=== PATIENT | female | born 1985 | race American Indian/Alaskan Native ===

== ENCOUNTER 2021-01-13 23:17 | Emergency (ER) | payer SELFPAY ==
[2021-01-14] MEDS ORDERED: AMOXICILLIN/K CLAV 875/125MG TAB PO ONE (00:57)
[2021-01-14] MEDS ORDERED: traMADol 50 MG TAB PO ONE (00:57)
--- NOTE | 2021-01-14 02:24 | Emergency Department Report ---
ED General Adult HPI - General Chief complaint: Dental/Oral Stated complaint: DENTAL Time Seen by Provider: 01/14/21 00:55 Source: patient Mode of arrival: Ambulatory Limitations: No Limitations - History of Present Illness Initial comments: Patient 35-year-old female who presents for dental pain. Right lower x3 days. This is a chronic recurrent problem for this patient. Patient advises she has been unable to see the dentist. States she had pain and swelling 2 days ago and abscess ruptured today causing some bleeding and drainage. Is been no fevers no chills no nausea vomiting there is no throat or ear pain. Patient is tolerating p.o. intake at this time. Symptoms are exacerbated by hot and cold stimuli. Symptoms are relieved by nothing tried. Severity scale (0 -10): 4 - Related Data Previous Rx's Medication Instructions Recorded Last Taken Type Amoxicillin/Potassium Clav 1 each PO BID #14 tablet 01/14/21 Unknown Rx [Augmentin 875-125 Tablet] Chlorhexidine Mouthwash [Peridex] 15 ml MM BID #1 bottle 01/14/21 Unknown Rx traMADoL [Ultram] 50 mg PO Q6HR PRN #12 tablet 01/14/21 Unknown Rx Allergies Allergy/AdvReac Type Severity Reaction Status Date / Time No Known Allergies Allergy Unverified 01/13/21 23:22 ED Review of Systems ROS: Stated complaint: DENTAL Other details as noted in HPI Constitutional: denies: chills, fever Eyes: denies: eye pain, eye discharge, vision change ENT: dental pain. denies: throat pain, epistaxis, congestion Respiratory: denies: cough, shortness of breath, wheezing Cardiovascular: denies: chest pain, palpitations Endocrine: no symptoms reported Gastrointestinal: denies: abdominal pain, nausea, vomiting, diarrhea Genitourinary: denies: urgency, dysuria, discharge Musculoskeletal: denies: back pain, joint swelling, arthralgia Skin: denies: rash, lesions Neurological: denies: headache, weakness, paresthesias, vertigo Psychiatric: denies: anxiety, depression Hematological/Lymphatic: denies: easy bleeding, easy bruising ED Past Medical Hx - Past Medical History Previous Medical History?: Yes Hx Psychiatric Treatment: Yes (BIPOLAR) - Surgical History Past Surgical History?: No - Medications Home Medications: Home Medications Medication Instructions Recorded Confirmed Last Taken Type Amoxicillin/Potassium Clav 1 each PO BID #14 tablet 01/14/21 Unknown Rx [Augmentin 875-125 Tablet] Chlorhexidine Mouthwash [Peridex] 15 ml MM BID #1 bottle 01/14/21 Unknown Rx traMADoL [Ultram] 50 mg PO Q6HR PRN #12 tablet 01/14/21 Unknown Rx ED Physical Exam - General Limitations: No Limitations General appearance: alert, in no apparent distress - Head Head exam: Present: atraumatic, normocephalic - Eye Eye exam: Present: normal appearance, PERRL, EOMI. Absent: conjunctival injection, nystagmus Pupils: Present: normal accommodation - ENT ENT exam: Present: mucous membranes moist, TM's normal bilaterally, normal external ear exam - Expanded ENT Exam Expanded Ear exam: Present: normal external inspection Teeth exam: Present: dental caries, fractured tooth # (32 mild erythema no swelling no facial swelling) Throat exam: Positive: normal inspection, other (Airways patent pharynx no lesions no abscess no stridor no wheezing). Negative: tonsillar erythema, tonsillomegaly, tonsillar exudate, R peritonsillar mass, L peritonsillar mass - Neck Neck exam: Present: normal inspection, tenderness, full ROM, lymphadenopathy. Absent: meningismus, thyromegaly - Respiratory Respiratory exam: Present: normal lung sounds bilaterally. Absent: respiratory distress, wheezes, stridor, chest wall tenderness - Cardiovascular Cardiovascular Exam: Present: regular rate, normal rhythm, normal heart sounds. Absent: systolic murmur, diastolic murmur, rubs, gallop - GI/Abdominal GI/Abdominal exam: Present: soft, normal bowel sounds. Absent: distended, tenderness, guarding, rebound, rigid, bruit, hernia - Rectal Rectal exam: Present: deferred - Extremities Exam Extremities exam: Present: normal inspection, full ROM. Absent: tenderness - Back Exam Back exam: Present: normal inspection, full ROM. Absent: CVA tenderness (R), CVA tenderness (L) - Neurological Exam Neurological exam: Present: alert, oriented X3, CN II-XII intact, normal gait - Psychiatric Psychiatric exam: Present: normal affect, normal mood - Skin Skin exam: Present: warm, dry, intact, normal color. Absent: rash ED Course Vital Signs 01/13/21 23:19 Temperature 98.5 F Pulse Rate 109 H Respiratory 18 Rate Blood Pressure 135/86 O2 Sat by Pulse 97 Oximetry ED Medical Decision Making - Lab Data This is infected dental caries plan DC to home with prescriptions. Follow-up with dentist today. Return to emergency department should symptoms worsen. Patient verbalized agreement and understanding of discharge plan DC'd home in stable condition at this time. - Medical Decision Making There is infected dental caries. Take all medications as prescribed. Return to emergency if symptoms worsen. Critical care attestation.: If time is entered above; I have spent that time in minutes in the direct care of this critically ill patient, excluding procedure time. ED Disposition Clinical Impression: Infected dental caries Disposition: HOME / SELF CARE / HOMELESS Is pt being admited?: No Does the pt Need Aspirin: No Condition: Stable Instructions: Dental Abscess, [id number], Preventive Dental Care, Adult Additional Instructions: Follow-up with dentist in 2 to 3 days. Return to emergency department if symptoms worsen. Prescriptions: Amoxicillin/Potassium Clav [Augmentin 875-125 Tablet] 1 each PO BID #14 tablet Chlorhexidine Mouthwash [Peridex] 15 ml MM BID #1 bottle traMADoL [Ultram] 50 mg PO Q6HR PRN #12 tablet PRN Reason: Pain Referrals: PRIMARY CARE, [Primary Care Provider] - 3-5 Days Forms: Work/School Release Form(ED) Time of Disposition: 02:30
[2021-01-14 03:32] VITALS: BP 104/86
== END 2021-01-14 03:31 | disposition home or self-care (01) ==
LOC: ED 23:17
DX: K02.9 Dental caries, unspecified (principal); F31.9 Bipolar disorder, unspecified
CPT/HCPCS: 99281; 99282

== ENCOUNTER 2021-03-02 16:39 | Emergency (ER) | payer MEDICAID | END 2021-03-03 04:30 | disposition left against medical advice (07) | LOC: ED 16:39 | DX: F41.9 Anxiety disorder, unspecified (principal); Z53.21 Procedure and treatment not carried out due to patient leaving prior to being seen by health care provider ==

== ENCOUNTER 2021-03-06 18:32 | Emergency (ER) | payer MEDICAID ==
[2021-03-07] MEDS ORDERED: DIVALPROEX DR 500 MG TAB PO ONE (01:09)
[2021-03-07] MEDS ORDERED: clonazePAM 0.5 MG TAB PO ONE (01:09)
--- NOTE | 2021-03-07 01:13 | Emergency Department Report ---
ED General Adult HPI - General Chief complaint: Medical Clearance Stated complaint: MEDICATION WITHDRAWAL Source: patient Mode of arrival: Ambulatory Limitations: No Limitations - History of Present Illness Initial comments: Patient is a 35-year-old -Maltese female with a history of anxiety, depression and bipolar disorder and who takes Klonopin 1 mg twice daily and Dep akote 500 mg twice a day presents to the ED requesting for medication refill after she ran out of her medications 2 months ago. Patient states that she just relocated into the state [facility] from [place] where she has been seeing a psychiatrist and who has been prescribing these medications. Patient states that she has not been able to be evaluated or follow-up with a psychiatrist in [place] because she finds it hard to get 1. The patient states that the only psychiatrist that she has been in contact with told her that she may not be able to be seen until August 2021. Patient states that she ran out of her medication and she is unable to function without them. Patient denies suicidal or homicidal ideation, chest pain or shortness of breath, nausea and vomiting, dizziness, syncope, fever and chills or cough, abdominal pain or change in vision. MD Complaint: medication refil, chronic baseline anxiety, depression and Bipolar d/o -: Gradual, month(s) (3) Location: head Radiation: non-radiation Severity scale (0 -10): 7 Quality: dull Consistency: constant Improves with: none Worsens with: none Associated Symptoms: denies other symptoms. denies: confusion, chest pain, cough, diaphoresis, fever/chills, headaches, loss of appetite, malaise, nausea/vomiting, rash, shortness of breath Treatments Prior to Arrival: none - Related Data Previous Rx's Medication Instructions Recorded Last Taken Type Amoxicillin/Potassium Clav 1 each PO BID #14 tablet 01/14/21 Unknown Rx [Augmentin 875-125 Tablet] Chlorhexidine Mouthwash [Peridex] 15 ml MM BID #1 bottle 01/14/21 Unknown Rx traMADoL [Ultram] 50 mg PO Q6HR PRN #12 tablet 01/14/[address] [DepaKOTE DR] 500 mg PO BID #60 tablet 03/07/21 Unknown Rx clonazePAM [Klonopin] 1 mg PO Q12H PRN #12 tab 03/07/21 Unknown Rx Allergies Allergy/AdvReac Type Severity Reaction Status Date / Time No Known Allergies Allergy Unverified 01/13/21 23:22 ED Review of Systems ROS: Stated complaint: MEDICATION WITHDRAWAL Other details as noted in HPI Constitutional: denies: chills, fever Eyes: denies: eye pain, eye discharge, vision change ENT: denies: ear pain, throat pain Respiratory: denies: cough, shortness of breath, wheezing Cardiovascular: denies: chest pain, palpitations Endocrine: no symptoms reported Gastrointestinal: denies: abdominal pain, nausea, diarrhea Genitourinary: denies: urgency, dysuria, discharge Musculoskeletal: denies: back pain, joint swelling, arthralgia Skin: denies: rash, lesions Neurological: denies: headache, weakness, paresthesias Psychiatric: anxiety. denies: depression, auditory hallucinations, visual hallucinations, homicidal thoughts, suicidal thoughts Hematological/Lymphatic: denies: easy bleeding, easy bruising ED Past Medical Hx - Past Medical History Previous Medical History?: Yes Hx Psychiatric Treatment: Yes (BIPOLAR, anxiety and depression) - Surgical History Past Surgical History?: No - Medications Home Medications: Home Medications Medication Instructions Recorded Confirmed Last Taken Type Amoxicillin/Potassium Clav 1 each PO BID #14 tablet 01/14/21 Unknown Rx [Augmentin 875-125 Tablet] Chlorhexidine Mouthwash [Peridex] 15 ml MM BID #1 bottle 01/14/21 Unknown Rx traMADoL [Ultram] 50 mg PO Q6HR PRN #12 tablet 01/14/[address] [DepaKOTE DR] 500 mg PO BID #60 tablet 03/07/21 Unknown Rx clonazePAM [Klonopin] 1 mg PO Q12H PRN #12 tab 03/07/21 Unknown Rx ED Physical Exam - General Limitations: No Limitations General appearance: alert, in no apparent distress - Head Head exam: Present: atraumatic, normocephalic, normal inspection - Eye Eye exam: Present: normal appearance, PERRL, EOMI Pupils: Present: normal accommodation - ENT ENT exam: Present: normal exam, normal orophraynx, mucous membranes moist, TM's normal bilaterally, normal external ear exam - Neck Neck exam: Present: normal inspection, full ROM - Respiratory Respiratory exam: Present: normal lung sounds bilaterally. Absent: respiratory distress, wheezes, rales, rhonchi, chest wall tenderness, accessory muscle use, decreased breath sounds - Cardiovascular Cardiovascular Exam: Present: regular rate, normal rhythm, normal heart sounds. Absent: systolic murmur, diastolic murmur, rubs, gallop - GI/Abdominal GI/Abdominal exam: Present: soft, normal bowel sounds. Absent: tenderness, guarding, hyperactive bowel sounds, hypoactive bowel sounds - Extremities Exam Extremities exam: Present: normal inspection, full ROM, normal capillary refill - Back Exam Back exam: Present: normal inspection, full ROM. Absent: CVA tenderness (L), muscle spasm, paraspinal tenderness, vertebral tenderness - Neurological Exam Neurological exam: Present: alert, oriented X3, CN II-XII intact, normal gait, reflexes normal. Absent: abnormal gait - Psychiatric Psychiatric exam: Present: depressed, anxious, flat affect. Absent: agitated, homicidal ideation, suicidal ideation - Skin Skin exam: Present: warm, dry, intact, normal color. Absent: rash ED Course Vital Signs 03/06/21 03/06/21 19:20 19:24 Temperature 98.2 F Pulse Rate 87 Respiratory 18 Rate Blood Pressure 88/64 Blood Pressure 128/83 [Left] O2 Sat by Pulse 100 Oximetry ED Medical Decision Making - Medical Decision Making This is a 35-year-old -Maltese female with a history of anxiety, depression and bipolar disorder and who takes Klonopin 1 mg twice daily and Depakote 500 mg twice a day presents to the ED requesting for medication refill after she ran out of her medications 2 months ago. Patient states that she just relocated into the state [facility] from [place] where she has been seeing a psychiatrist and who has been prescribing these medications. Patient states that she has not been able to be evaluated or follow-up with a psychiatrist in [place] because she finds it hard to get 1. The patient states that the only psychiatrist that she has been in contact with told her that she may not be able to be seen until August 2021. Patient states that she ran out of her medication and she is unable to function without them. In the ED, patient is alert and oriented x3 and is not in any distress. Patient was treated in the ED with m edications Depakote 500 mg p.o. x1 and Klonopin 1 mg p.o. x1. Patient discharged home on medications and given a referral to the psychiatrist and advised to follow-up with the psychiatrist in 5 to 7 days for reevaluation. Patient was advised to return to the ED immediately if symptoms get worse. - Differential Diagnosis Chronic anxiety; chronic depression; bipolar disorder; Critical care attestation.: If time is entered above; I have spent that time in minutes in the direct care of this critically ill patient, excluding procedure time. ED Disposition Clinical Impression: Chronic bipolar disorder, Anxiety with depression, Medication refill Disposition: 01 HOME / SELF CARE / HOMELESS Is pt being admited?: No Does the pt Need Aspirin: No Condition: Stable Instructions: Generalized Anxiety Disorder, Adult, Mixed Bipolar Disorder, Managing Bipolar Disorder Additional Instructions: Take medication with food, drink plenty of fluids and follow-up with your psychiatrist in 7 to 10 days for reevaluation. You can still follow-up with your home-based psychiatrist virtually as previously done. Return to the ED immediately if symptoms get worse. Prescriptions: Divalproex Dr [DepaKOTE DR] 500 mg PO BID #60 tablet clonazePAM [Klonopin] 1 mg PO Q12H PRN #12 tab PRN Reason: Anxiety Referrals: JENN CORCORAN MD [Referring] - 3-5 Days [facility] [Provider Group] - 3-5 Days Time of Disposition: 01:15 Print Language: HUNGARIAN
[2021-03-07 01:47] VITALS: BP 123/88
== END 2021-03-07 01:30 | disposition home or self-care (01) ==
LOC: ED 18:32
DX: F31.9 Bipolar disorder, unspecified (principal); F41.9 Anxiety disorder, unspecified; Z76.0 Encounter for issue of repeat prescription; G89.29 Other chronic pain
CPT/HCPCS: 99282

== ENCOUNTER 2021-06-08 07:44 | Emergency (ER) | payer MEDICAID ==
--- NOTE | 2021-06-08 12:41 | Emergency Department Report ---
ED Recheck HPI - General Chief Complaint: Medical Clearance Stated Complaint: PANIC ATTACK Time Seen by Provider: 06/08/21 12:27 Source: patient Mode of arrival: Ambulatory Limitations: No Limitations - History of Present Illness Initial Comments: 35-year-old black female with a past medical history of anxiety and seizures presents to the emergency department requesting medication refill. She states that she has been in [place] for the past 3 to 4 weeks secondary to in the family and since then has ran out of her Klonopin and Depakote. She denies any symptoms but states that she needs to restart her medication and has not been able to get an appointment with her primary care provider. Complaint: medication refill request Returns Today for: request for prescription Context: ran out of medication Associated Symptoms: none - Related Data Previous Rx's Medication Instructions Recorded Last Taken Type Amoxicillin/Potassium Clav 1 each PO BID #14 tablet 01/14/21 Unknown Rx [Augmentin 875-125 Tablet] Chlorhexidine Mouthwash [Peridex] 15 ml MM BID #1 bottle 01/14/21 Unknown Rx traMADoL [Ultram] 50 mg PO Q6HR PRN #12 tablet 01/14/[address] [DepaKOTE DR] 500 mg PO BID #60 tablet 03/07/21 Unknown Rx clonazePAM [Klonopin] 1 mg PO Q12H PRN #12 tab 03/07/[address] [DepaKOTE DR] 500 mg PO BID #30 tablet 06/08/21 Unknown Rx clonazePAM [Klonopin] 1 mg PO BID #30 tab 06/08/21 Unknown Rx Allergies Allergy/AdvReac Type Severity Reaction Status Date / Time No Known Allergies Allergy Unverified 01/13/21 23:22 ED Review of Systems ROS: Stated complaint: PANIC ATTACK Other details as noted in HPI Comment: All other systems reviewed and negative Constitutional: denies: chills, fever Eyes: denies: vision change ENT: denies: congestion Respiratory: denies: cough, shortness of breath, SOB with exertion, SOB at rest Cardiovascular: denies: chest pain, palpitations, dyspnea on exertion Gastrointestinal: denies: abdominal pain, nausea, vomiting Genitourinary: denies: dysuria Musculoskeletal: denies: back pain Skin: denies: rash, lesions Neurological: denies: headache, weakness, numbness, paresthesias, confusion, vertigo Psychiatric: denies: anxiety, depression, auditory hallucinations, visual hallucinations, homicidal thoughts, suicidal thoughts ED Past Medical Hx - Past Medical History Hx Psychiatric Treatment: Yes (BIPOLAR, anxiety and depression) - Medications Home Medications: Home Medications Medication Instructions Recorded Confirmed Last Taken Type Amoxicillin/Potassium Clav 1 each PO BID #14 tablet 01/14/21 Unknown Rx [Augmentin 875-125 Tablet] Chlorhexidine Mouthwash [Peridex] 15 ml MM BID #1 bottle 01/14/21 Unknown Rx traMADoL [Ultram] 50 mg PO Q6HR PRN #12 tablet 01/14/[address] [DepaKOTE DR] 500 mg PO BID #60 tablet 03/07/21 Unknown Rx clonazePAM [Klonopin] 1 mg PO Q12H PRN #12 tab 03/07/[address] [DepaKOTE DR] 500 mg PO BID #30 tablet 06/08/21 Unknown Rx clonazePAM [Klonopin] 1 mg PO BID #30 tab 06/08/21 Unknown Rx ED Physical Exam - General Limitations: No Limitations General appearance: alert, in no apparent distress - Head Head exam: Present: atraumatic, normocephalic - Eye Eye exam: Present: normal appearance. Absent: conjunctival injection - Neck Neck exam: Present: normal inspection, full ROM. Absent: lymphadenopathy - Respiratory Respiratory exam: Present: normal lung sounds bilaterally. Absent: respiratory distress, wheezes, rales, rhonchi, stridor, chest wall tenderness, accessory muscle use - Cardiovascular Cardiovascular Exam: Present: regular rate, normal heart sounds - GI/Abdominal GI/Abdominal exam: Present: soft, normal bowel sounds. Absent: distended, guarding, rebound, rigid - Extremities Exam Extremities exam: Present: normal inspection, normal capillary refill. Absent: pedal edema, joint swelling, calf tenderness - Back Exam Back exam: Present: normal inspection - Neurological Exam Neurological exam: Present: alert, oriented X3, normal gait - Psychiatric Psychiatric exam: Present: normal affect, normal mood - Skin Skin exam: Present: warm, dry, intact, normal color ED Course Vital Signs 06/08/21 06/08/21 08:24 12:59 Temperature 97.8 F Pulse Rate 65 67 Respiratory 18 18 Rate Blood Pressure 105/67 97/70 [Right] O2 Sat by Pulse 100 98 Oximetry ED Recheck MDM - Differential Diagnosis Prescription Refill(s) - Medical Decision Making 35-year-old black female with a past medical history of anxiety and seizures presents to the emergency department requesting medication refill. She states that she has been in [place] for the past 3 to 4 weeks secondary to in the family and since then has ran out of her Klonopin and Depakote. She denies any symptoms but states that she needs to restart her medication and has not been able to get an appointment with her primary care provider. Patient without complaints of at this time. She denies SI and HI. Patient given refill of Klonopin and Depakote and advised to follow-up with her primary care provider for further evaluation and management. She verbalized understanding of and agreement with plan of care. Critical care attestation.: If time is entered above; I have spent that time in minutes in the direct care of this critically ill patient, excluding procedure time. ED Disposition Clinical Impression: Medication refill Disposition: 01 HOME / SELF CARE / HOMELESS Is pt being admited?: No Does the pt Need Aspirin: No Condition: Stable Instructions: Valproic Acid, Divalproex Sodium capsules, Clonazepam tablets Additional Instructions: Take medications as prescribed. Follow-up with primary care provider for further evaluation and management. Prescriptions: Divalproex Dr [DepaKOTE DR] 500 mg PO BID #30 tablet clonazePAM [Klonopin] 1 mg PO BID #30 tab Referrals: BRYCE KASPER MD [Primary Care Provider] - 3-5 Days LILLIAN GUTIERREZ MD [Referring] - 3-5 Days Time of Disposition: 12:42
[2021-06-08 13:02] VITALS: BP 97/70
== END 2021-06-08 13:02 | disposition home or self-care (01) ==
LOC: ED 07:44
DX: F41.9 Anxiety disorder, unspecified (principal); Z76.0 Encounter for issue of repeat prescription
CPT/HCPCS: 99282

== ENCOUNTER 2021-06-30 22:09 | Emergency (ER) | payer MEDICAID ==
[2021-07-01 00:16] VITALS: BP 101/76
[2021-07-01 00:32] LABS: Bilirubin,Urine NEG (Negative); Blood,Urine LG (Negative); Color,Urine Yellow (Yellow); Mucus,Urine 3+ /HPF; Protein,Urine <15 mg/dL mg/dL (Negative)
[2021-07-01 00:33] LABS: Amphetamine Screen,Urine PRESUMPTIVE NEGATIVE; Benzodiazepines Screen,Urine PRESUMPTIVE NEGATIVE; Cannabinoid Screen,Urine PRESUMPTIVE NEGATIVE; Cocaine Screen,Urine PRESUMPTIVE NEGATIVE; HCG Qualitative,Urine Negative (Negative); Methadone Screen,Urine PRESUMPTIVE NEGATIVE; Opiate Screen,Urine PRESUMPTIVE NEGATIVE
[2021-07-01 00:58] LABS: Basophils % (Auto) 0.4 % (0.0-1.8); Eosinophils # (Auto) 0.1 K/mm3 (0.0-0.4); Eosinophils % (Auto) 1.3 % (0.0-4.3); Hematocrit 36.8 % (30.3-42.9); Hemoglobin 11.9 gm/dl (10.1-14.3); Lymphocytes # (Auto) 2.9 K/mm3 (1.2-5.4); Lymphocytes % (Auto) 42.2 % (13.4-35.0); Mean Corpuscular HGB Conc 32 % (30-34); Mean Corpuscular Volume 84 fl (79-97); Monocytes # (Auto) 0.5 K/mm3 (0.0-0.8); Monocytes % (Auto) 7.6 % (0.0-7.3); Platelet Count 229 K/mm3 (140-440); Red Blood Count 4.36 M/mm3 (3.65-5.03); Red Cell Distribution Width 14.8 % (13.2-15.2)
[2021-07-01 00:59] LABS: Alanine Aminotransferase 11 units/L (7-56); Albumin 4.1 g/dL (3.9-5); Blood Urea Nitrogen 9 mg/dL (7-17); Calcium 8.9 mg/dL (8.4-10.2); Hemolysis Index 1
[2021-07-01 01:24] LABS: BUN/Creatinine Ratio 13
== END 2021-07-01 11:59 ==
LOC: ED 22:09
DX: F41.9 Anxiety disorder, unspecified (principal); Z53.21 Procedure and treatment not carried out due to patient leaving prior to being seen by health care provider; Z79.899 Other long term (current) drug therapy
CPT/HCPCS: 36415; 80053; 80307; 80320; 81001; 81025; 85025; G0480

== ENCOUNTER 2021-07-05 02:39 | Emergency (ER) | payer MEDICAID ==
[2021-07-05 02:49] VITALS: BP 107/76
[2021-07-05] MEDS ORDERED: clonazePAM 0.5 MG TAB PO ONE (03:33)
--- NOTE | 2021-07-05 03:38 | Emergency Department Report ---
ED Psych HPI - General Chief Complaint: Psych Stated Complaint: PANIC ATTACK Time Seen by Provider: 07/05/21 03:03 Source: patient Mode of arrival: Ambulatory Limitations: No Limitations - History of Present Illness Initial Comments: Patient is a 36-year-old female presenting the ED with complaint of panic attack for the past 2 hours. States she is out of her Klonopin. - Related Data Previous Rx's Medication Instructions Recorded Last Taken Type Amoxicillin/Potassium Clav 1 each PO BID #14 tablet 01/14/21 Unknown Rx [Augmentin 875-125 Tablet] Chlorhexidine Mouthwash [Peridex] 15 ml MM BID #1 bottle 01/14/21 Unknown Rx traMADoL [Ultram] 50 mg PO Q6HR PRN #12 tablet 01/14/[address] [Roberto VAZQUEZ] 500 mg PO BID #60 tablet 03/07/21 Unknown Rx clonazePAM [Klonopin] 1 mg PO Q12H PRN #12 tab 03/07/[address] [Roberto VAZQUEZ] 500 mg PO BID #30 tablet 06/08/21 Unknown Rx clonazePAM [Klonopin] 1 mg PO BID #30 tab 06/08/21 Unknown Rx clonazePAM [Klonopin] 1 mg PO BID PRN #10 07/05/21 Unknown Rx Allergies Allergy/AdvReac Type Severity Reaction Status Date / Time No Known Allergies Allergy Unverified 01/13/21 23:22 ED Review of Systems ROS: Stated complaint: PANIC ATTACK Other details as noted in HPI Constitutional: denies: chills, fever Respiratory: denies: cough, shortness of breath, wheezing Cardiovascular: denies: chest pain, palpitations Gastrointestinal: denies: abdominal pain, nausea, diarrhea Musculoskeletal: denies: back pain, joint swelling, arthralgia Skin: denies: rash, lesions Neurological: denies: headache, weakness, paresthesias Psychiatric: anxiety ED Past Medical Hx - Past Medical History Previous Medical History?: Yes Hx Psychiatric Treatment: Yes (BIPOLAR, anxiety and depression) - Surgical History Past Surgical History?: No - Social History Smoking Status: Never Smoker Substance Use Type: None - Medications Home Medications: Home Medications Medication Instructions Recorded Confirmed Last Taken Type Amoxicillin/Potassium Clav 1 each PO BID #14 tablet 01/14/21 Unknown Rx [Augmentin 875-125 Tablet] Chlorhexidine Mouthwash [Peridex] 15 ml MM BID #1 bottle 01/14/21 Unknown Rx traMADoL [Ultram] 50 mg PO Q6HR PRN #12 tablet 01/14/[address] [DepaKOTE DR] 500 mg PO BID #60 tablet 03/07/21 Unknown Rx clonazePAM [Klonopin] 1 mg PO Q12H PRN #12 tab 03/07/[address] [DepaKOTE DR] 500 mg PO BID #30 tablet 06/08/21 Unknown Rx clonazePAM [Klonopin] 1 mg PO BID #30 tab 06/08/21 Unknown Rx clonazePAM [Klonopin] 1 mg PO BID PRN #10 07/05/21 Unknown Rx ED Physical Exam - General Limitations: No Limitations - Head Head exam: Present: atraumatic, normocephalic - Neck Neck exam: Present: normal inspection - Respiratory Respiratory exam: Present: normal lung sounds bilaterally. Absent: respiratory distress, wheezes - Cardiovascular Cardiovascular Exam: Present: regular rate, normal rhythm, normal heart sounds - GI/Abdominal GI/Abdominal exam: Present: soft. Absent: distended, tenderness - Neurological Exam Neurological exam: Present: alert, oriented X3 - Psychiatric Psychiatric exam: Present: normal affect, normal mood - Skin Skin exam: Present: warm, dry, intact, normal color ED Course Vital Signs 07/05/21 02:43 Temperature 98.2 F Pulse Rate 91 H Respiratory 18 Rate Blood Pressure 107/76 O2 Sat by Pulse 100 Oximetry Critical care attestation.: If time is entered above; I have spent that time in minutes in the direct care of this critically ill patient, excluding procedure time. ED Disposition Clinical Impression: Panic attack Disposition: 01 HOME / SELF CARE / HOMELESS Is pt being admited?: No Does the pt Need Aspirin: No Condition: Stable Instructions: Panic Attack, [id number] Time of Disposition: 03:38
== END 2021-07-05 06:07 | disposition home or self-care (01) ==
LOC: ED 02:39
DX: F41.0 Panic disorder [episodic paroxysmal anxiety] (principal); F31.9 Bipolar disorder, unspecified
CPT/HCPCS: 99282

== ENCOUNTER 2021-07-10 12:28 | Emergency (ER) | payer MEDICAID ==
--- NOTE | 2021-07-10 18:06 | Emergency Department Report ---
ED General Adult HPI - General Chief complaint: Urogenital-Female Stated complaint: VAGINAL/BUTTOCK PAIN Time Seen by Provider: 07/10/21 17:39 Source: patient Mode of arrival: Ambulatory Limitations: No Limitations - History of Present Illness Initial comments: 36-year-old F [place] female [facility] department complaining of having pelvic pain off and on for the last several months of no known etiology while she was in [place] she was seen in emergency department diagnosed with trichomonas and is having a hard time coming to homebound teacher that that was a finding and she suspects that there is alternative issues that has not yet been discovered. States that when she touches inside her vaginal canal she feels a ball-like sensation has some discomfort to the vaginal canal sometimes with bowel movements. She reports no vaginal bleeding. States she is not sexually active. No fever, chills, sweats. No chest pain or palpitations, no nausea, no vomiting -: Gradual Location: head - Related Data Previous Rx's Medication Instructions Recorded Last Taken Type Amoxicillin/Potassium Clav 1 each PO BID #14 tablet 01/14/21 Unknown Rx [Augmentin 875-125 Tablet] Chlorhexidine Mouthwash [Peridex] 15 ml MM BID #1 bottle 01/14/21 Unknown Rx traMADoL [Ultram] 50 mg PO Q6HR PRN #12 tablet 01/14/[address] Natalio VAZQUEZ] 500 mg PO BID #60 tablet 03/07/21 Unknown Rx clonazePAM [Klonopin] 1 mg PO Q12H PRN #12 tab 03/07/[address] Natalio VAZQUEZ] 500 mg PO BID #30 tablet 06/08/21 Unknown Rx clonazePAM [Klonopin] 1 mg PO BID #30 tab 06/08/21 Unknown Rx clonazePAM [Klonopin] 1 mg PO BID PRN #10 07/05/21 Unknown Rx Allergies Allergy/AdvReac Type Severity Reaction Status Date / Time No Known Allergies Allergy Verified 07/10/21 12:53 ED Review of Systems ROS: Stated complaint: VAGINAL/BUTTOCK PAIN Other details as noted in HPI Comment: All other systems reviewed and negative ED Past Medical Hx - Past Medical History Previous Medical History?: Yes Hx Psychiatric Treatment: Yes (BIPOLAR, anxiety and depression) - Social History Smoking Status: Never Smoker Substance Use Type: None - Medications Home Medications: Home Medications Medication Instructions Recorded Confirmed Last Taken Type Amoxicillin/Potassium Clav 1 each PO BID #14 tablet 01/14/21 Unknown Rx [Augmentin 875-125 Tablet] Chlorhexidine Mouthwash [Peridex] 15 ml MM BID #1 bottle 01/14/21 Unknown Rx traMADoL [Ultram] 50 mg PO Q6HR PRN #12 tablet 01/14/[address] [DepaKOTE DR] 500 mg PO BID #60 tablet 03/07/21 Unknown Rx clonazePAM [Klonopin] 1 mg PO Q12H PRN #12 tab 03/07/[address] [DepaKOTE DR] 500 mg PO BID #30 tablet 06/08/21 Unknown Rx clonazePAM [Klonopin] 1 mg PO BID #30 tab 06/08/21 Unknown Rx clonazePAM [Klonopin] 1 mg PO BID PRN #10 07/05/21 Unknown Rx ED Physical Exam - General Limitations: No Limitations General appearance: alert, in no apparent distress - Head Head exam: Present: atraumatic, normocephalic - Eye Eye exam: Present: normal appearance, PERRL, EOMI Pupils: Present: normal accommodation - ENT ENT exam: Present: mucous membranes moist - Neck Neck exam: Present: normal inspection - Respiratory Respiratory exam: Present: normal lung sounds bilaterally. Absent: respiratory distress, wheezes, rales, rhonchi - Cardiovascular Cardiovascular Exam: Present: regular rate, normal rhythm. Absent: systolic murmur, diastolic murmur, rubs, gallop - GI/Abdominal GI/Abdominal exam: Present: soft, normal bowel sounds - Bi-manual exam: Present: other (Tenderness to the right lower vaginal border in the area of the Bartholin's gland no abscesses present. Small nodules appreciated. No excoriation. There is vaginal discharge noted. No cervical wall motion tenderness. No adnexal tenderness.). Absent: adnexal tenderness, adnexal mass - Extremities Exam Extremities exam: Present: normal inspection, full ROM, normal capillary refill - Back Exam Back exam: Present: normal inspection. Absent: CVA tenderness (R), CVA tenderness (L) - Neurological Exam Neurological exam: Present: alert, oriented X3, CN II-XII intact, normal gait - Psychiatric Psychiatric exam: Present: normal affect, normal mood - Skin Skin exam: Present: warm, dry, intact, normal color. Absent: rash ED Course Vital Signs 07/10/21 12:51 Temperature 98.3 F Pulse Rate 74 Respiratory 18 Rate Blood Pressure 126/88 O2 Sat by Pulse 100 Oximetry ED Medical Decision Making - Lab Data Result diagrams: 07/10/21 18:08 07/10/21 18:08 Critical care attestation.: If time is entered above; I have spent that time in minutes in the direct care of this critically ill patient, excluding procedure time. ED Disposition Clinical Impression: Vaginitis Condition: Stable Referrals: PRIMARY CARE, [Primary Care Provider] - 3-5 Days
[2021-07-10 18:26] LABS: Basophils # (Auto) 0.1 K/mm3 (0.0-0.1); Eosinophils # (Auto) 0.1 K/mm3 (0.0-0.4); Eosinophils % (Auto) 0.9 % (0.0-4.3); Hematocrit 36.8 % (30.3-42.9); Hemoglobin 11.9 gm/dl (10.1-14.3); Lymphocytes % (Auto) 38.7 % (13.4-35.0); Mean Corpuscular HGB Conc 32 % (30-34); Mean Corpuscular Volume 84 fl (79-97); Monocytes # (Auto) 0.5 K/mm3 (0.0-0.8); Monocytes % (Auto) 6.7 % (0.0-7.3); Platelet Count 227 K/mm3 (140-440); Red Blood Count 4.39 M/mm3 (3.65-5.03); Red Cell Distribution Width 14.7 % (13.2-15.2)
[2021-07-10 18:33] LABS: Blood Urea Nitrogen 11 mg/dL (7-17); Calcium 9.6 mg/dL (8.4-10.2); Hemolysis Index 4
[2021-07-10 18:36] LABS: BUN/Creatinine Ratio 16
[2021-07-10 19:49] LABS: Bacteria,Urine 4+ /HPF (Negative); Bilirubin,Urine NEG (Negative); Blood,Urine NEG (Negative); Color,Urine Yellow (Yellow); HCG Qualitative,Urine Negative (Negative); Mucus,Urine 3+ /HPF; Protein,Urine <15 mg/dL mg/dL (Negative); Urobilinogen,Urine < 2.0 mg/dL (<2.0)
--- NOTE | 2021-07-10 20:46 | Ultrasound Report ---
ULTRASOUND PELVIS INDICATION: pelvic pain. TECHNIQUE: Transabdominal. Duplex Color Doppler used: Yes. COMPARISON: None available FINDINGS: Uterus: Present. Size: 10.5 x 3.4 x 3.6 cm. Endometrial complex: Fluid-filled measuring 7 mm. Mass lesions: None. Additional findings: None. Right Ovary -- Normal. Blood flow: Normal. Cyst or mass: 1.8 cm follicular cyst Left Ovary--not visualized secondary to bowel gas Urinary Bladder: Normal. Free Fluid: None. Additional Findings: None. IMPRESSION: 1. Fluid-filled borderline dilated endometrial canal likely secondary to menstruation. Please correla te with LMP 2. Left ovary not visualized Signer Name: Diaz Oliva MD Signed: 07/10/2021 8:42 PM Workstation Name: [id number]
[2021-07-10 21:15] VITALS: BP 120/66
== END 2021-07-10 21:15 | disposition home or self-care (01) ==
LOC: ED 12:28
DX: N76.0 Acute vaginitis (principal); F31.9 Bipolar disorder, unspecified; Z79.899 Other long term (current) drug therapy
CPT/HCPCS: 36415; 76856; 80048; 81001; 81025; 85025; 87210; 87591; 99284

== ENCOUNTER 2021-07-19 15:04 | Emergency (ER) | payer MEDICAID ==
[2021-07-19 21:41] LABS: Basophils % (Auto) 0.5 % (0.0-1.8); Eosinophils # (Auto) 0.1 K/mm3 (0.0-0.4); Eosinophils % (Auto) 1.3 % (0.0-4.3); Hematocrit 34.5 % (30.3-42.9); Hemoglobin 11.2 gm/dl (10.1-14.3); Lymphocytes # (Auto) 2.4 K/mm3 (1.2-5.4); Lymphocytes % (Auto) 30.6 % (13.4-35.0); Mean Corpuscular HGB Conc 33 % (30-34); Mean Corpuscular Volume 84 fl (79-97); Monocytes # (Auto) 0.6 K/mm3 (0.0-0.8); Platelet Count 218 K/mm3 (140-440); Red Blood Count 4.12 M/mm3 (3.65-5.03); Red Cell Distribution Width 14.7 % (13.2-15.2)
[2021-07-19 22:05] LABS: BUN/Creatinine Ratio 19; Blood Urea Nitrogen 13 mg/dL (7-17); Calcium 9.1 mg/dL (8.4-10.2); Hemolysis Index 3
[2021-07-20 01:32] LABS: Amphetamine Screen,Urine Negative; Benzodiazepines Screen,Urine Negative; Cannabinoid Screen,Urine Negative; Cocaine Screen,Urine Negative; Methadone Screen,Urine Negative; Opiate Screen,Urine Negative
[2021-07-20 01:35] LABS: Bacteria,Urine 1+ /HPF (Negative); Bilirubin,Urine NEG (Negative); Blood,Urine NEG (Negative); Color,Urine Yellow (Yellow); Mucus,Urine 3+ /HPF; Protein,Urine <15 mg/dL mg/dL (Negative); Urobilinogen,Urine < 2.0 mg/dL (<2.0)
--- NOTE | 2021-07-20 03:57 | Emergency Department Report ---
ED Psych HPI - General Chief Complaint: Psych Stated Complaint: ANXIETY/PANIC ATTACK/WITHDRAWAL MEDS Source: patient Mode of arrival: Ambulatory - Related Data Previous Rx's Medication Instructions Recorded Last Taken Type Amoxicillin/Potassium Clav 1 each PO BID #14 tablet 01/14/21 Unknown Rx [Augmentin 875-125 Tablet] Chlorhexidine Mouthwash [Peridex] 15 ml MM BID #1 bottle 01/14/21 Unknown Rx traMADoL [Ultram] 50 mg PO Q6HR PRN #12 tablet 01/14/[address] [Roberto VAZQUEZ] 500 mg PO BID #60 tablet 03/07/21 Unknown Rx clonazePAM [Klonopin] 1 mg PO Q12H PRN #12 tab 03/07/21 Unknown Rx Divalproex [Roberto VAZQUEZ] 500 mg PO BID #30 tablet 06/08/21 Unknown Rx clonazePAM [Klonopin] 1 mg PO BID #30 tab 06/08/21 Unknown Rx clonazePAM [Klonopin] 1 mg PO BID PRN #10 07/05/21 Unknown Rx Ketorolac [Toradol] 10 mg PO Q6H PRN #14 07/10/21 Unknown Rx Allergies Allergy/AdvReac Type Severity Reaction Status Date / Time No Known Allergies Allergy Verified 07/10/21 12:53 ED Review of Systems ROS: Stated complaint: ANXIETY/PANIC ATTACK/WITHDRAWAL MEDS Other details as noted in HPI ED Past Medical Hx - Past Medical History Previous Medical History?: Yes Hx Psychiatric Treatment: Yes (BIPOLAR, anxiety and depression) - Surgical History Past Surgical History?: No - Social History Smoking Status: Never Smoker Substance Use Type: None - Medications Home Medications: Home Medications Medication Instructions Recorded Confirmed Last Taken Type Amoxicillin/Potassium Clav 1 each PO BID #14 tablet 01/14/21 Unknown Rx [Augmentin 875-125 Tablet] Chlorhexidine Mouthwash [Peridex] 15 ml MM BID #1 bottle 01/14/21 Unknown Rx traMADoL [Ultram] 50 mg PO Q6HR PRN #12 tablet 01/14/21 Unknown Rx Divalproex [Roberto VAZQUEZ] 500 mg PO BID #60 tablet 03/07/21 Unknown Rx clonazePAM [Klonopin] 1 mg PO Q12H PRN #12 tab 03/07/21 Unknown Rx Divalproex [DepaKOTE DR] 500 mg PO BID #30 tablet 06/08/21 Unknown Rx clonazePAM [Klonopin] 1 mg PO BID #30 tab 06/08/21 Unknown Rx clonazePAM [Klonopin] 1 mg PO BID PRN #10 07/05/21 Unknown Rx Ketorolac [Toradol] 10 mg PO Q6H PRN #14 07/10/21 Unknown Rx ED Physical Exam - General Limitations: No Limitations ED Course Vital Signs 07/19/21 16:57 Temperature 98 F Pulse Rate 77 Respiratory 22 Rate Blood Pressure 133/81 [Right] O2 Sat by Pulse 99 Oximetry ED Medical Decision Making - Lab Data Result diagrams: 07/19/21 21:30 07/19/21 21:30 - Medical Decision Making as per [place] prescription monitoring 07/05/2021 07/05/2021 1 Clonazepam 1 Mg Tablet 10.00 5 Ky Salas [id number] James ([id number]) 0 06/08/2021 06/08/2021 1 Clonazepam 1 Mg Tablet 30.00 15 Sh [place] [id number] James ([id number]) 0 03/18/2021 03/18/2021 1 Clonazepam 1 Mg [id number] 30 Je Claudine [id number] James ([id number]) 0 03/07/2021 03/07/2021 1 Clonazepam 1 Mg Nzvevw50.00 6 Ah Angie [id number] James ([id number]) 0 01/14/2021 01/14/2021 1 Tramadol Hcl 50 Mg [id number] 3 Ry She [id number] James ([id number]) 0 Critical care attestation.: If time is entered above; I have spent that time in minutes in the direct care of this critically ill patient, excluding procedure time. ED Disposition Condition: Stable
[2021-07-20] MEDS ORDERED: DIVALPROEX DR 500 MG TAB PO ONE (04:05)
[2021-07-20] MEDS ORDERED: clonazePAM 0.5 MG TAB PO ONE (04:05)
--- NOTE | 2021-07-20 04:27 | Emergency Department Report ---
ED Psych HPI - General Chief Complaint: Psych Stated Complaint: ANXIETY/PANIC ATTACK/WITHDRAWAL MEDS Source: patient Mode of arrival: Ambulatory Limitations: No Limitations - History of Present Illness Initial Comments: 36-year-old female with a past medical history of bipolar disease and anxiety presents to the [facility] requesting a refill on her medication. Patient states she relocated here from [place] and has yet to find. Psychiatrist that would accept her insurance and accept her as a patient. Patient has presented to this ER multiple times since February (including several times this month) requesting refills in both Depakote and Klonopin. Patient states she has not had either in the last 3 weeks and is having difficulty functioning. She is feeling anxious and appears anxious on examination. These medications were originally prescribed by a physician in [place]. - Related Data Previous Rx's Medication Instructions Recorded Last Taken Type Amoxicillin/Potassium Clav 1 each PO BID #14 tablet 01/14/21 Unknown Rx [Augmentin 875-125 Tablet] Chlorhexidine Mouthwash [Peridex] 15 ml MM BID #1 bottle 01/14/21 Unknown Rx traMADoL [Ultram] 50 mg PO Q6HR PRN #12 tablet 01/14/21 Unknown Rx clonazePAM [Klonopin] 1 mg PO Q12H PRN #12 tab 03/07/[address] Natalio BAINS] 500 mg PO BID #30 tablet 06/08/21 Unknown Rx clonazePAM [Klonopin] 1 mg PO BID PRN #10 07/05/21 Unknown Rx Ketorolac [Toradol] 10 mg PO Q6H PRN #14 07/10/[address] Natalio Bains] 500 mg PO BID #60 tablet 07/20/21 Unknown Rx clonazePAM [Klonopin] 1 mg PO BID #16 tab 07/20/21 Unknown Rx Allergies Allergy/AdvReac Type Severity Reaction Status Date / Time No Known Allergies Allergy Verified 07/10/21 12:53 ED Review of Systems ROS: Stated complaint: ANXIETY/PANIC ATTACK/WITHDRAWAL MEDS Other details as noted in HPI Comment: All other systems reviewed and negative ED Past Medical Hx - Past Medical History Previous Medical History?: Yes Hx Psychiatric Treatment: Yes (BIPOLAR, anxiety and depression) - Surgical History Past Surgical History?: No - Social History Smoking Status: Never Smoker Substance Use Type: None - Medications Home Medications: Home Medications Medication Instructions Recorded Confirmed Last Taken Type Amoxicillin/Potassium Clav 1 each PO BID #14 tablet 01/14/21 Unknown Rx [Augmentin 875-125 Tablet] Chlorhexidine Mouthwash [Peridex] 15 ml MM BID #1 bottle 01/14/21 Unknown Rx traMADoL [Ultram] 50 mg PO Q6HR PRN #12 tablet 01/14/21 Unknown Rx clonazePAM [Klonopin] 1 mg PO Q12H PRN #12 tab 03/07/[address] [Roberto BAINS] 500 mg PO BID #30 tablet 06/08/21 Unknown Rx clonazePAM [Klonopin] 1 mg PO BID PRN #10 07/05/21 Unknown Rx Ketorolac [Toradol] 10 mg PO Q6H PRN #14 07/10/[address] [Roberto Bains] 500 mg PO BID #60 tablet 07/20/21 Unknown Rx clonazePAM [Klonopin] 1 mg PO BID #16 tab 07/20/21 Unknown Rx ED Physical Exam - General Limitations: No Limitations - Other Other exam information: General: No acute distress Head: Atraumatic Eyes: normal appearance ENT: Moist mucous membranes Neck: Normal appearance, no midline tenderness Chest: Clear to auscultation bilaterally CV: Regular rate and rhythm Abdomen: Soft, normal bowel sounds, nontender, nondistended, no rebound or guarding Back: Normal inspection Extremity: Normal inspection, full range of motion Neuro: Alert O x 3, no facial asymmetry, speech clear, no gross motor sensory deficit Psych: Speaking fast and anxious however, organized, fluent speech Skin: No rash ED Course Vital Signs 07/19/21 16:57 Temperature 98 F Pulse Rate 77 Respiratory 22 Rate Blood Pressure 133/81 [Right] O2 Sat by Pulse 99 Oximetry ED Medical Decision Making - Lab Data Result diagrams: 07/19/21 21:30 07/19/21 21:30 Lab Results 07/19/21 07/19/21 07/19/21 Range/Units 21:30 21:30 21:30 WBC (4.5-11.0) K/mm3 RBC (3.65-5.03) M/mm3 Hgb (10.1-14.3) gm/dl Hct (30.3-42.9) % MCV (79-97) fl MCH (28-32) pg MCHC (30-34) % RDW (13.2-15.2) % Plt Count (140-440) K/mm3 Lymph % (Auto) (13.4-35.0) % [place] % (Auto) (0.0-7.3) % Eos % (Auto) (0.0-4.3) % Baso % (Auto) (0.0-1.8) % Lymph # (Auto) (1.2-5.4) K/mm3 [place] # (Auto) (0.0-0.8) K/mm3 Eos # (Auto) (0.0-0.4) K/mm3 Baso # (Auto) (0.0-0.1) K/mm3 Seg Neutrophils % (40.0-70.0) % Seg Neutrophils # (1.8-7.7) K/mm3 Sodium 139 (137-145) mmol/L Potassium 4.0 (3.6-5.0) mmol/L Chloride 105.8 (98-107) mmol/L Carbon Dioxide 23 (22-30) mmol/L Anion Gap 14 mmol/L BUN 13 (7-17) mg/dL Creatinine 0.7 (0.6-1.2) mg/dL Estimated GFR > 60 ml/min BUN/Creatinine Ratio 19 % Glucose 84 (65-100) mg/dL Calcium 9.1 (8.4-10.2) mg/dL Urine Color (Yellow) Urine Turbidity (Clear) Urine pH (5.0-7.0) Ur Specific [place] (1.003-1.030) Urine Protein (Negative) mg/dL Urine Glucose (UA) (Negative) mg/dL Urine Ketones (Negative) mg/dL Urine Blood (Negative) Urine Nitrite (Negative) Urine Bilirubin (Negative) Urine Urobilinogen (<2.0) mg/dL Ur Leukocyte Esterase (Negative) Urine WBC (Auto) (0.0-6.0) /HPF Urine RBC (Auto) (0.0-6.0) /HPF U Epithel Cells (Auto) (0-13.0) /HPF Urine Bacteria (Auto) (Negative) /HPF Urine Mucus /HPF Salicylates 1.6 L (2.8-20.0) mg/dL Urine Opiates Screen Urine Methadone Screen Acetaminophen 5.0 L (10.0-30.0) ug/mL Ur Barbiturates Screen Ur Phencyclidine Scrn Ur Amphetamines Screen U Benzodiazepines Scrn Urine Cocaine Screen U Marijuana (THC) Screen Drugs of Abuse Note Plasma/Serum Alcohol (0-0.07) % 07/19/21 07/19/21 07/19/21 Range/Units 21:30 21:30 Unknown WBC 8.0 (4.5-11.0) K/mm3 RBC 4.12 (3.65-5.03) M/mm3 Hgb 11.2 (10.1-14.3) gm/dl Hct 34.5 (30.3-42.9) % MCV 84 (79-97) fl MCH 27 L (28-32) pg MCHC 33 (30-34) % RDW 14.7 (13.2-15.2) % Plt Count 218 (140-440) K/mm3 Lymph % (Auto) 30.6 (13.4-35.0) % [place] % (Auto) 7.0 (0.0-7.3) % Eos % (Auto) 1.3 (0.0-4.3) % Baso % (Auto) 0.5 (0.0-1.8) % Lymph # (Auto) 2.4 (1.2-5.4) K/mm3 [place] # (Auto) 0.6 (0.0-0.8) K/mm3 Eos # (Auto) 0.1 (0.0-0.4) K/mm3 Baso # (Auto) 0.0 (0.0-0.1) K/mm3 Seg Neutrophils % 60.6 (40.0-70.0) % Seg Neutrophils # 4.8 (1.8-7.7) K/mm3 Sodium (137-145) mmol/L Potassium (3.6-5.0) mmol/L Chloride (98-107) mmol/L Carbon Dioxide (22-30) mmol/L Anion Gap mmol/L BUN (7-17) mg/dL Creatinine (0.6-1.2) mg/dL Estimated GFR ml/min BUN/Creatinine Ratio % Glucose (65-100) mg/dL Calcium (8.4-10.2) mg/dL Urine Color Yellow (Yellow) Urine Turbidity Clear (Clear) Urine pH 6.0 (5.0-7.0) Ur Specific [place] 1.020 (1.003-1.030) Urine Protein <15 mg/dl (Negative) mg/dL Urine Glucose (UA) Neg (Negative) mg/dL Urine Ketones Neg (Negative) mg/dL Urine Blood Neg (Negative) Urine Nitrite Neg (Negative) Urine Bilirubin Neg (Negative) Urine Urobilinogen < 2.0 (<2.0) mg/dL Ur Leukocyte Esterase Neg (Negative) Urine WBC (Auto) 3.0 (0.0-6.0) /HPF Urine RBC (Auto) 1.0 (0.0-6.0) /HPF U Epithel Cells (Auto) 12.0 (0-13.0) /HPF Urine Bacteria (Auto) 1+ (Negative) /HPF Urine Mucus 3+ /HPF Salicylates (2.8-20.0) mg/dL Urine Opiates Screen Urine Methadone Screen Acetaminophen (10.0-30.0) ug/mL Ur Barbiturates Screen Ur Phencyclidine Scrn Ur Amphetamines Screen U Benzodiazepines Scrn Urine Cocaine Screen U Marijuana (THC) Screen Drugs of Abuse Note Plasma/Serum Alcohol < 0.01 (0-0.07) % 07/19/21 Range/Units Unknown WBC (4.5-11.0) K/mm3 RBC (3.65-5.03) M/mm3 Hgb (10.1-14.3) gm/dl Hct (30.3-42.9) % MCV (79-97) fl MCH (28-32) pg MCHC (30-34) % RDW (13.2-15.2) % Plt Count (140-440) K/mm3 Lymph % (Auto) (13.4-35.0) % [place] % (Auto) (0.0-7.3) % Eos % (Auto) (0.0-4.3) % Baso % (Auto) (0.0-1.8) % Lymph # (Auto) (1.2-5.4) K/mm3 [place] # (Auto) (0.0-0.8) K/mm3 Eos # (Auto) (0.0-0.4) K/mm3 Baso # (Auto) (0.0-0.1) K/mm3 Seg Neutrophils % (40.0-70.0) % Seg Neutrophils # (1.8-7.7) K/mm3 Sodium (137-145) mmol/L Potassium (3.6-5.0) mmol/L Chloride (98-107) mmol/L Carbon Dioxide (22-30) mmol/L Anion Gap mmol/L BUN (7-17) mg/dL Creatinine (0.6-1.2) mg/dL Estimated GFR ml/min BUN/Creatinine Ratio % Glucose (65-100) mg/dL Calcium (8.4-10.2) mg/dL Urine Color (Yellow) Urine Turbidity (Clear) Urine pH (5.0-7.0) Ur Specific [place] (1.003-1.030) Urine Protein (Negative) mg/dL Urine Glucose (UA) (Negative) mg/dL Urine Ketones (Negative) mg/dL Urine Blood (Negative) Urine Nitrite (Negative) Urine Bilirubin (Negative) Urine Urobilinogen (<2.0) mg/dL Ur Leukocyte Esterase (Negative) Urine WBC (Auto) (0.0-6.0) /HPF Urine RBC (Auto) (0.0-6.0) /HPF U Epithel Cells (Auto) (0-13.0) /HPF Urine Bacteria (Auto) (Negative) /HPF Urine Mucus /HPF Salicylates (2.8-20.0) mg/dL Urine Opiates Screen Negative Urine Methadone Screen Negative Acetaminophen (10.0-30.0) ug/mL Ur Barbiturates Screen Negative Ur Phencyclidine Scrn Negative Ur Amphetamines Screen Negative U Benzodiazepines Scrn Negative Urine Cocaine Screen Negative U Marijuana (THC) Screen Negative Drugs of Abuse Note Disclamer Plasma/Serum Alcohol (0-0.07) % - Medical Decision Making 36-year-old female presents to the hospital questing a refill her medication. She is supposed to be on both Depakote and takes Klonopin Critical Care Time: No Critical care attestation.: If time is entered above; I have spent that time in minutes in the direct care of this critically ill patient, excluding procedure time. ED Disposition Clinical Impression: Anxiety, Medication refill Disposition: 01 HOME / SELF CARE / HOMELESS Is pt being admited?: No Does the pt Need Aspirin: No Condition: Stable Instructions: Managing Anxiety, Adult Additional Instructions: Take the medication as prescribed. Follow-up with your doctor or doctor/clinic provided. Return if symptoms worsen as indicated by your discharge instructions. Outpatient [facility] Behavioral Health Resources: YOMI: [facility] [address], [place] [address] [facility] [address] [place] [address] Tuesday thru Tuesday - 8am - 5pm Call to schedule an assessment for mental health and substance abuse programs JAIN: [facility] Address: [address] [place] [address] Tuesday thru Tuesday- 7am-2pm [facility] Address: [address] [place] [address] Tuesday thru Tuesday: 8:30AM-5PM Prescriptions: Divalproex [Roberto Bains] 500 mg PO BID #60 tablet clonazePAM [Klonopin] 1 mg PO BID #16 tab Referrals: [facility] [Outside] - 3-5 Days [facility] [Provider Group] - 3-5 Days (Primary care clinic) Time of Disposition: 04:27
[2021-07-20 06:20] VITALS: BP 126/78
== END 2021-07-20 05:00 | disposition home or self-care (01) ==
LOC: ED 15:04
DX: F41.9 Anxiety disorder, unspecified (principal); Z76.0 Encounter for issue of repeat prescription; Z79.899 Other long term (current) drug therapy
CPT/HCPCS: 36415; 80048; 80307; 80320; 81001; 85025; 99283; G0480

== ENCOUNTER 2021-08-14 20:36 | Emergency (ER) | payer MEDICAID ==
[2021-08-15] MEDS ORDERED: clonazePAM 0.5 MG TAB PO ONE (08:09)
[2021-08-15 08:20] VITALS: BP 120/83
--- NOTE | 2021-08-15 08:38 | Emergency Department Report ---
ED General Adult HPI - General Chief complaint: Medical Clearance Stated complaint: WITHDRAWL OFF MEDS Source: patient Mode of arrival: Ambulatory Limitations: No Limitations - History of Present Illness Initial comments: 36-year-old female presents to the ED for medication refill of clonazepam and Depakote. Patient has a history of schizophrenia and bipolar. She states that she has moved here from [place] and just receiving her [place] Medicaid. States she has been unable to find a doctor to see her refill of her medication. Patient states that the referrals that we have given her in the past that appointment dates are too far out. Patient states that she has been out of her medication and feels very shaky. She denies any suicidal or homicidal ideation. Patient is alert and oriented x3. No acute distress noted. No Ill appearance noted. - Related Data Previous Rx's Medication Instructions Recorded Last Taken Type Amoxicillin/Potassium Clav 1 each PO BID #14 tablet 01/14/21 Unknown Rx [Augmentin 875-125 Tablet] Chlorhexidine Mouthwash [Peridex] 15 ml MM BID #1 bottle 01/14/21 Unknown Rx traMADoL [Ultram] 50 mg PO Q6HR PRN #12 tablet 01/14/21 Unknown Rx clonazePAM [Klonopin] 1 mg PO Q12H PRN #12 tab 03/07/[address] Natalio BAINS] 500 mg PO BID #30 tablet 06/08/21 Unknown Rx clonazePAM [Klonopin] 1 mg PO BID PRN #10 07/05/21 Unknown Rx Ketorolac [Toradol] 10 mg PO Q6H PRN #14 07/10/[address] Natalio Bains] 500 mg PO BID #60 tablet 07/20/21 Unknown Rx clonazePAM [Klonopin] 1 mg PO BID #16 tab 07/20/21 Unknown Rx Divalproex Sodium [Depakote] 500 mg PO BID 30 Days #60 tab 08/15/21 Unknown Rx clonazePAM [Klonopin] 1 mg PO BID 8 Days #16 tab 08/15/21 Unknown Rx Allergies Allergy/AdvReac Type Severity Reaction Status Date / Time No Known Allergies Allergy Verified 07/10/21 12:53 ED Review of Systems ROS: Stated complaint: WITHDRAWL OFF MEDS Other details as noted in HPI Constitutional: denies: chills, fever Eyes: denies: eye pain, eye discharge, vision change ENT: denies: ear pain, throat pain Respiratory: denies: cough, shortness of breath, wheezing Cardiovascular: denies: chest pain, palpitations Endocrine: no symptoms reported Gastrointestinal: denies: abdominal pain, nausea, diarrhea Genitourinary: denies: urgency, dysuria, discharge Musculoskeletal: denies: back pain, joint swelling, arthralgia Skin: denies: rash, lesions Neurological: denies: headache, weakness, paresthesias Psychiatric: denies: anxiety, depression Hematological/Lymphatic: denies: easy bleeding, easy bruising ED Past Medical Hx - Past Medical History Hx Psychiatric Treatment: Yes (BIPOLAR, anxiety and depression) - Social History Smoking Status: Never Smoker - Medications Home Medications: Home Medications Medication Instructions Recorded Confirmed Last Taken Type Amoxicillin/Potassium Clav 1 each PO BID #14 tablet 01/14/21 Unknown Rx [Augmentin 875-125 Tablet] Chlorhexidine Mouthwash [Peridex] 15 ml MM BID #1 bottle 01/14/21 Unknown Rx traMADoL [Ultram] 50 mg PO Q6HR PRN #12 tablet 01/14/21 Unknown Rx clonazePAM [Klonopin] 1 mg PO Q12H PRN #12 tab 03/07/21 Unknown Rx Divalproex [Roberto BAINS] 500 mg PO BID #30 tablet 06/08/21 Unknown Rx clonazePAM [Klonopin] 1 mg PO BID PRN #10 07/05/21 Unknown Rx Ketorolac [Toradol] 10 mg PO Q6H PRN #14 07/10/[address] Natalio Bains] 500 mg PO BID #60 tablet 07/20/21 Unknown Rx clonazePAM [Klonopin] 1 mg PO BID #16 tab 07/20/21 Unknown Rx Divalproex Sodium [Depakote] 500 mg PO BID 30 Days #60 tab 08/15/21 Unknown Rx clonazePAM [Klonopin] 1 mg PO BID 8 Days #16 tab 08/15/21 Unknown Rx ED Physical Exam - General Limitations: No Limitations General appearance: alert, in no apparent distress - Head Head exam: Present: atraumatic, normocephalic - Eye Eye exam: Present: normal appearance - ENT ENT exam: Present: mucous membranes moist - Neck Neck exam: Present: normal inspection - Respiratory Respiratory exam: Present: normal lung sounds bilaterally. Absent: respiratory distress - Cardiovascular Cardiovascular Exam: Present: regular rate, normal rhythm. Absent: systolic murmur, diastolic murmur, rubs, gallop - GI/Abdominal GI/Abdominal exam: Present: soft, normal bowel sounds - Extremities Exam Extremities exam: Present: normal inspection - Back Exam Back exam: Present: normal inspection - Neurological Exam Neurological exam: Present: alert, oriented X3 - Psychiatric Psychiatric exam: Present: normal affect, normal mood - Skin Skin exam: Present: warm, dry, intact, normal color. Absent: rash ED Course Vital Signs 08/14/21 08/15/21 21:53 08:18 Temperature 98.6 F 98.5 F Pulse Rate 76 65 Respiratory 18 20 Rate Blood Pressure 117/89 120/83 O2 Sat by Pulse 100 98 Oximetry ED Medical Decision Making - Medical Decision Making 36-year-old female presents to the ED for medication refill of clonazepam and Depakote. Patient has a history of schizophrenia and bipolar. She states that she has moved here from [place] and just receiving her [place] Medicaid. States she has been unable to find a doctor to see her refill of her medication. Patient states that the referrals that we have given her in the past that appointment dates are too far out. Patient states that she has been out of her medication and feels very shaky. She denies any suicidal or homicidal ideation. Patient is alert and oriented x3. No acute distress noted. No Ill appearance noted. Rechecked the patient is resting quietly quietly and comfortable and feeling better. I discussed the results of diagnostic study, my clinical impression and the plan for further treatment with the patient. Patient agrees with plan and discharge at this present time. All question addressed. I have given the patient instruction regarding a diagnosis ,expectation ,follow- up and return precaution. I explained to the patient that emergent condition may arise and to return to the ED for new worsen and any new persisting condition. I have explained the importance of following up with the primary care physician or referral physician listed below has instructed. The patient verbalized understanding of discharge instruction. Critical care attestation.: If time is entered above; I have spent that time in minutes in the direct care of this critically ill patient, excluding procedure time. ED Disposition Clinical Impression: Medication refill Disposition: HOME / SELF CARE / HOMELESS Is pt being admited?: No Does the pt Need Aspirin: No Condition: Stable Instructions: Medicine Refill at the Emergency Department Additional Instructions: Take medication as prescribed return to the ED for any worsening symptom Keep appointment with any previous schedule psychiatric facility Prescriptions: Divalproex Sodium [Depakote] 500 mg PO BID 30 Days #60 tab clonazePAM [Klonopin] 1 mg PO BID 8 Days #16 tab Referrals: BRYCE KASPER MD [Primary Care Provider] - 3-5 Days [facility] [Outside] - 3-5 Days [facility] [Outside] - 3-5 Days Forms: Work/School Release Form(ED) Time of Disposition: 08:43
== END 2021-08-15 09:15 | disposition home or self-care (01) ==
LOC: ED 20:36
DX: F41.9 Anxiety disorder, unspecified (principal); Z76.0 Encounter for issue of repeat prescription; Z79.899 Other long term (current) drug therapy
CPT/HCPCS: 99282

== ENCOUNTER 2021-09-05 15:44 | Emergency (ER) | payer MEDICAID ==
[2021-09-05 17:17] VITALS: BP 129/73
== END 2021-09-05 18:37 | disposition left against medical advice (07) ==
LOC: ED 15:44
DX: F23 Brief psychotic disorder (principal); Z76.0 Encounter for issue of repeat prescription; Z53.21 Procedure and treatment not carried out due to patient leaving prior to being seen by health care provider

== ENCOUNTER 2021-09-06 16:49 | Emergency (ER) | payer MEDICAID ==
[2021-09-06 23:01] LABS: Basophils % (Auto) 0.5 % (0.0-1.8); Eosinophils # (Auto) 0.1 K/mm3 (0.0-0.4); Eosinophils % (Auto) 1.1 % (0.0-4.3); Hematocrit 35.6 % (30.3-42.9); Hemoglobin 11.4 gm/dl (10.1-14.3); Lymphocytes # (Auto) 2.6 K/mm3 (1.2-5.4); Lymphocytes % (Auto) 36.7 % (13.4-35.0); Mean Corpuscular HGB Conc 32 % (30-34); Mean Corpuscular Volume 85 fl (79-97); Monocytes # (Auto) 0.5 K/mm3 (0.0-0.8); Monocytes % (Auto) 6.5 % (0.0-7.3); Platelet Count 241 K/mm3 (140-440); Red Blood Count 4.17 M/mm3 (3.65-5.03); Red Cell Distribution Width 14.7 % (13.2-15.2)
[2021-09-06 23:18] LABS: Alanine Aminotransferase 14 units/L (7-56); Albumin 3.9 g/dL (3.9-5); Blood Urea Nitrogen 9 mg/dL (7-17); Calcium 9.2 mg/dL (8.4-10.2); Hemolysis Index 7
--- NOTE | 2021-09-06 23:27 | Emergency Department Report ---
ED General Adult HPI - General Chief complaint: Medical Clearance Stated complaint: WITHDRAWALS Time Seen by Provider: 09/06/21 22:23 Source: patient Mode of arrival: Ambulatory Limitations: No Limitations - History of Present Illness Initial comments: Pt reports she is out of her medications and feels like she is starting to go into withdrawals. pt recently moved to [place] and does not have a pyschiatrist that she is seeing. pt needs medication refills for Clonazepam 1 mg, olanzapine 10 mg, Depakote 500 mg uporn reveiw of her notes pt has been here for 9 months and has been coming here recently for the same claiming she cannot find apsychiatrist or pcp to see her Associated Symptoms: denies: denies other symptoms, confusion, chest pain, diaphoresis, fever/chills - Related Data Previous Rx's Medication Instructions Recorded Last Taken Type Amoxicillin/Potassium Clav 1 each PO BID #14 tablet 01/14/21 Unknown Rx [Augmentin 875-125 Tablet] Chlorhexidine Mouthwash [Peridex] 15 ml MM BID #1 bottle 01/14/21 Unknown Rx traMADoL [Ultram] 50 mg PO Q6HR PRN #12 tablet 01/14/21 Unknown Rx clonazePAM [Klonopin] 1 mg PO Q12H PRN #12 tab 03/07/[address] Natalio BAINS] 500 mg PO BID #30 tablet 06/08/21 Unknown Rx clonazePAM [Klonopin] 1 mg PO BID PRN #10 07/05/21 Unknown Rx Ketorolac [Toradol] 10 mg PO Q6H PRN #14 07/10/[address] Natalio Bains] 500 mg PO BID #60 tablet 07/20/21 Unknown Rx clonazePAM [Klonopin] 1 mg PO BID #16 tab 07/20/21 Unknown Rx Divalproex Sodium [Depakote] 500 mg PO BID 30 Days #60 tab 08/15/21 Unknown Rx clonazePAM [Klonopin] 1 mg PO BID 8 Days #16 tab 08/15/21 Unknown Rx Allergies Allergy/AdvReac Type Severity Reaction Status Date / Time No Known Allergies Allergy Verified 07/10/21 12:53 ED Review of Systems ROS: Stated complaint: WITHDRAWALS Other details as noted in HPI Constitutional: denies: chills, fever Eyes: denies: eye pain, eye discharge, vision change ENT: denies: ear pain, throat pain Respiratory: denies: cough, shortness of breath, wheezing Cardiovascular: denies: chest pain, palpitations Endocrine: no symptoms reported Gastrointestinal: denies: abdominal pain, nausea, diarrhea Genitourinary: denies: urgency, dysuria, discharge Musculoskeletal: denies: back pain, joint swelling, arthralgia Skin: denies: rash, lesions Neurological: denies: headache, weakness, paresthesias Psychiatric: denies: anxiety, depression Hematological/Lymphatic: denies: easy bleeding, easy bruising ED Past Medical Hx - Past Medical History Previous Medical History?: No Hx Hypertension: No Hx Psychiatric Treatment: Yes (BIPOLAR, anxiety and depression) - Social History Smoking Status: Never Smoker - Medications Home Medications: Home Medications Medication Instructions Recorded Confirmed Last Taken Type Amoxicillin/Potassium Clav 1 each PO BID #14 tablet 01/14/21 Unknown Rx [Augmentin 875-125 Tablet] Chlorhexidine Mouthwash [Peridex] 15 ml MM BID #1 bottle 01/14/21 Unknown Rx traMADoL [Ultram] 50 mg PO Q6HR PRN #12 tablet 01/14/21 Unknown Rx clonazePAM [Klonopin] 1 mg PO Q12H PRN #12 tab 03/07/[address] Natalio BAINS] 500 mg PO BID #30 tablet 06/08/21 Unknown Rx clonazePAM [Klonopin] 1 mg PO BID PRN #10 07/05/21 Unknown Rx Ketorolac [Toradol] 10 mg PO Q6H PRN #14 07/10/[address] Natalio Bains] 500 mg PO BID #60 tablet 07/20/21 Unknown Rx clonazePAM [Klonopin] 1 mg PO BID #16 tab 07/20/21 Unknown Rx Divalproex Sodium [Depakote] 500 mg PO BID 30 Days #60 tab 08/15/21 Unknown Rx clonazePAM [Klonopin] 1 mg PO BID 8 Days #16 tab 08/15/21 Unknown Rx ED Physical Exam - General Limitations: No Limitations General appearance: alert, in no apparent distress, anxious - Head Head exam: Present: atraumatic, normocephalic - Eye Eye exam: Present: normal appearance - ENT ENT exam: Present: mucous membranes moist - Neck Neck exam: Present: normal inspection - Respiratory Respiratory exam: Present: normal lung sounds bilaterally. Absent: respiratory distress - Cardiovascular Cardiovascular Exam: Present: regular rate, normal rhythm. Absent: systolic murmur, diastolic murmur, rubs, gallop - GI/Abdominal GI/Abdominal exam: Present: soft, normal bowel sounds - Extremities Exam Extremities exam: Present: normal inspection - Back Exam Back exam: Present: normal inspection - Neurological Exam Neurological exam: Present: alert, oriented X3 - Psychiatric Psychiatric exam: Present: normal affect, normal mood - Skin Skin exam: Present: warm, dry, intact, normal color. Absent: rash ED Course Vital Signs 09/06/21 17:12 Temperature 97.8 F Pulse Rate 78 Respiratory 18 Rate Blood Pressure 124/83 O2 Sat by Pulse 100 Oximetry ED Medical Decision Making - Lab Data Result diagrams: 09/06/21 22:41 09/06/21 22:41 - Medical Decision Making pt was confronted [place] and she been coming here since February for the same claiming she cannot find pcp or psychiatrist for a year Critical care attestation.: If time is entered above; I have spent that time in minutes in the direct care of this critically ill patient, excluding procedure time. ED Disposition Clinical Impression: Medication refill, Benzodiazepine dependence, Chronic narcotic dependence Disposition: 01 HOME / SELF CARE / HOMELESS Is pt being admited?: No Does the pt Need Aspirin: No Condition: Stable Instructions: Finding Treatment for Addiction
[2021-09-06] MEDS: SODIUM CHLORIDE 0.9% 1000 ML 1,000 ML IV ONE (23:29)
[2021-09-06 23:34] LABS: BUN/Creatinine Ratio 15
[2021-09-06 23:56] VITALS: BP 126/78
== END 2021-09-07 01:00 | disposition home or self-care (01) ==
LOC: ED 16:49
DX: F17.200 Nicotine dependence, unspecified, uncomplicated (principal); F19.20 Other psychoactive substance dependence, uncomplicated; Z76.0 Encounter for issue of repeat prescription; F31.9 Bipolar disorder, unspecified; Z79.899 Other long term (current) drug therapy
CPT/HCPCS: 36415; 80053; 80164; 80320; 85025; 99283; G0480

== ENCOUNTER 2021-09-07 03:00 | Emergency (ER) | payer MEDICAID ==
[2021-09-07] MEDS ORDERED: clonazePAM 0.5 MG TAB PO ONE (12:51)
--- NOTE | 2021-09-07 12:59 | Emergency Department Report ---
ED Anxiety HPI - General Chief Complaint: Medical Clearance Stated Complaint: MH/AMAURI Time Seen by Provider: 09/07/21 12:50 Source: patient Mode of arrival: Ambulatory - History of Present Illness Initial Comments: 36-year-old black female with a past medical history of seizure presents to the emergency department for evaluation of anxiety. Patient states that she has been here every day for the last 3 days trying to get a refill of her Klonopin. Of note, patient has been here every month for the last 4 to 5 months requesting a refill. Per previous encounter with the MD. She was advised that she cannot get any more refills here because she needed to have a primary care provider sent so that she can have follow-up and lab work for those medications. Patient states that she just wants a pill to get her over the hump until she can her primary care provider. She denies SI and HI at this time. MD Complaint: anxiety -: Gradual, days(s) Place: home Previous History of Same: Yes Severity: mild Quality: intermittant Associated symptoms: denies: chest pain, shortness of breath, palpitations, diaphoresis, confusion, cough, fever/chills, headaches, anorexia, malaise, nausea/vomiting, rash, seizure, syncope, weakness - Related Data Home Medications: Previous Rx's Medication Instructions Recorded Last Taken Type Amoxicillin/Potassium Clav 1 each PO BID #14 tablet 01/14/21 Unknown Rx [Augmentin 875-125 Tablet] Chlorhexidine Mouthwash [Peridex] 15 ml MM BID #1 bottle 01/14/21 Unknown Rx traMADoL [Ultram] 50 mg PO Q6HR PRN #12 tablet 01/14/21 Unknown Rx clonazePAM [Klonopin] 1 mg PO Q12H PRN #12 tab 03/07/21 Unknown Rx Divalproex [Roberto BAINS] 500 mg PO BID #30 tablet 06/08/21 Unknown Rx clonazePAM [Klonopin] 1 mg PO BID PRN #10 07/05/21 Unknown Rx Ketorolac [Toradol] 10 mg PO Q6H PRN #14 07/10/21 Unknown Rx Divalproex [Roberto Bains] 500 mg PO BID #60 tablet 07/20/21 Unknown Rx clonazePAM [Klonopin] 1 mg PO BID #16 tab 07/20/21 Unknown Rx Divalproex Sodium [Depakote] 500 mg PO BID 30 Days #60 tab 08/15/21 Unknown Rx clonazePAM [Klonopin] 1 mg PO BID 8 Days #16 tab 08/15/21 Unknown Rx Allergies/Adverse Reactions: Allergies Allergy/AdvReac Type Severity Reaction Status Date / Time No Known Allergies Allergy Verified 07/10/21 12:53 ED Review of Systems ROS: Stated complaint: MH/AMAURI Other details as noted in HPI Comment: All other systems reviewed and negative Constitutional: denies: chills, fever Eyes: denies: vision change Respiratory: denies: shortness of breath Cardiovascular: denies: chest pain, palpitations Gastrointestinal: denies: abdominal pain, nausea, vomiting Genitourinary: denies: urgency, dysuria Musculoskeletal: denies: back pain Skin: denies: rash, lesions Neurological: denies: headache, weakness Psychiatric: denies: auditory hallucinations, visual hallucinations, homicidal thoughts, suicidal thoughts ED Past Medical Hx - Past Medical History Hx Hypertension: No Hx Psychiatric Treatment: Yes (BIPOLAR, anxiety and depression) - Social History Smoking Status: Never Smoker - Medications Home Medications: Home Medications Medication Instructions Recorded Confirmed Last Taken Type Amoxicillin/Potassium Clav 1 each PO BID #14 tablet 01/14/21 Unknown Rx [Augmentin 875-125 Tablet] Chlorhexidine Mouthwash [Peridex] 15 ml MM BID #1 bottle 01/14/21 Unknown Rx traMADoL [Ultram] 50 mg PO Q6HR PRN #12 tablet 01/14/21 Unknown Rx clonazePAM [Klonopin] 1 mg PO Q12H PRN #12 tab 03/07/21 Unknown Rx Divalproex [Roberto BAINS] 500 mg PO BID #30 tablet 06/08/21 Unknown Rx clonazePAM [Klonopin] 1 mg PO BID PRN #10 07/05/21 Unknown Rx Ketorolac [Toradol] 10 mg PO Q6H PRN #14 07/10/[address] Jose Bains] 500 mg PO BID #60 tablet 07/20/21 Unknown Rx clonazePAM [Klonopin] 1 mg PO BID #16 tab 07/20/21 Unknown Rx Divalproex Sodium [Depakote] 500 mg PO BID 30 Days #60 tab 08/15/21 Unknown Rx clonazePAM [Klonopin] 1 mg PO BID 8 Days #16 tab 08/15/21 Unknown Rx ED Physical Exam - General Limitations: No Limitations General appearance: alert, in no apparent distress - Head Head exam: Present: atraumatic, normocephalic - Eye Eye exam: Present: normal appearance. Absent: scleral icterus, conjunctival injection, periorbital swelling, periorbital tenderness - ENT ENT exam: Present: normal exam - Neck Neck exam: Present: normal inspection. Absent: tenderness, full ROM, lymphadenopathy - Respiratory Respiratory exam: Present: normal lung sounds bilaterally. Absent: respiratory distress, wheezes, rhonchi, stridor, chest wall tenderness - Cardiovascular Cardiovascular Exam: Present: regular rate, normal heart sounds - GI/Abdominal GI/Abdominal exam: Present: soft, normal bowel sounds. Absent: distended, tenderness, guarding, rebound, rigid - Extremities Exam Extremities exam: Present: normal inspection, full ROM, normal capillary refill. Absent: tenderness, pedal edema, joint swelling, calf tenderness - Back Exam Back exam: Present: normal inspection. Absent: CVA tenderness (R), CVA tenderness (L), vertebral tenderness - Neurological Exam Neurological exam: Present: alert, oriented X3, CN II-XII intact, normal gait, reflexes normal. Absent: motor sensory deficit - Psychiatric Psychiatric exam: Present: normal affect, normal mood - Skin Skin exam: Present: warm, dry, intact, normal color ED Course Vital Signs 09/07/21 07:38 Temperature 98.9 F Pulse Rate 74 Respiratory 17 Rate Blood Pressure 132/81 O2 Sat by Pulse 100 Oximetry ED Medical Decision Making - Medical Decision Making 36-year-old black female with a past medical history of seizure presents to the emergency department for evaluation of anxiety. Patient states that she has been here every day for the last 3 days trying to get a refill of her Klonopin. Of note, patient has been here every month for the last 4 to 5 months requesting a refill. Per previous encounter with the MD. She was advised that she cannot get any more refills here because she needed to have a primary care provider sent so that she can have follow-up and lab work for those medications. Patient states that she just wants a pill to get her over the hump until she can her primary care provider. She denies SI and HI at this time. Physical exam unremarkable. Patient seems to be in good spirits following commands appropriately and very cooperative. Patient given one-time dose of Klonopin 1 mg p.o. along with several outpatient resources that she can follow- up with to schedule for primary care. She is advised follow-up with her primary care provider in the next few days for further evaluation and management. Advised to return to the emergency department for any concerning symptoms. She verbalizes understanding of and agreement with plan of care. Critical care attestation.: If time is entered above; I have spent that time in minutes in the direct care of this critically ill patient, excluding procedure time. ED Disposition Clinical Impression: Anxiety Disposition: 01 HOME / SELF CARE / HOMELESS Is pt being admited?: No Does the pt Need Aspirin: No Condition: Stable Instructions: Managing Anxiety, Adult Additional Instructions: Follow up with primary care provider for further evaluation and management. Return to ED as needed. Referrals: [facility] [Provider Group] - 3-5 Days aarti Felix [Other] - 3-5 Days Tino Baxter [Other] - 3-5 Days Time of Disposition: 13:11
[2021-09-07] MEDS ORDERED: clonazePAM 0.5 MG TAB PO SCH (16:00)
[2021-09-07 18:18] VITALS: BP 145/87
== END 2021-09-07 18:20 | disposition home or self-care (01) ==
LOC: ED 03:00
DX: F41.9 Anxiety disorder, unspecified (principal); F32.9 Major depressive disorder, single episode, unspecified
CPT/HCPCS: 99282

== ENCOUNTER 2021-09-08 21:29 | Emergency (ER) | payer MEDICAID ==
[2021-09-09 01:17] VITALS: BP 119/76
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
== END 2021-09-09 05:20 | disposition home or self-care (01) ==
LOC: ED 21:29
DX: F41.9 Anxiety disorder, unspecified (principal); Z76.0 Encounter for issue of repeat prescription
CPT/HCPCS: 99282

== ENCOUNTER 2021-10-20 09:25 | Emergency (ER) | payer MEDICAID ==
--- NOTE | 2021-10-20 10:06 | Emergency Department Report ---
ED General Adult HPI - General Stated complaint: MIGRAINES/DIZZY PUI?: No Time Seen by Provider: 10/20/21 10:04 Source: patient Mode of arrival: Ambulatory Limitations: No Limitations - History of Present Illness Initial comments: 36 yo comes to ER with a/c headache. Her sister told her it was not normal to have headaches this often and she needs an MRI to determine cause. She refuses to understand MRI's are not routine in ER. She states a doctor told her if she has vision change they would do one. no trauma a/c headaches see EMR for numerous ER visits nad on exam no focal neuro deficit - Related Data Previous Rx's Medication Instructions Recorded Last Taken Type Amoxicillin/Potassium Clav 1 each PO BID #14 tablet 01/14/21 Unknown Rx [Augmentin 875-125 Tablet] Chlorhexidine Mouthwash [Peridex] 15 ml MM BID #1 bottle 01/14/21 Unknown Rx traMADoL [Ultram] 50 mg PO Q6HR PRN #12 tablet 01/14/21 Unknown Rx clonazePAM [Klonopin] 1 mg PO Q12H PRN #12 tab 03/07/[address] [Marquis BAINS] 500 mg PO BID #30 tablet 06/08/21 Unknown Rx clonazePAM [Klonopin] 1 mg PO BID PRN #10 07/05/21 Unknown Rx Ketorolac [Toradol] 10 mg PO Q6H PRN #14 07/10/[address] [Marquis Bains] 500 mg PO BID #60 tablet 07/20/21 Unknown Rx clonazePAM [Klonopin] 1 mg PO BID #16 tab 07/20/21 Unknown Rx Divalproex Sodium [Depakote] 500 mg PO BID 30 Days #60 tab 08/15/21 Unknown Rx clonazePAM [Klonopin] 1 mg PO BID 8 Days #16 tab 08/15/21 Unknown Rx Allergies Allergy/AdvReac Type Severity Reaction Status Date / Time No Known Allergies Allergy Verified 07/10/21 12:53 ED Review of Systems ROS: Stated complaint: MIGRAINES/DIZZY Other details as noted in HPI Comment: All other systems reviewed and negative ED Past Medical Hx - Past Medical History Previous Medical History?: Yes Hx Hypertension: No Hx Psychiatric Treatment: Yes (BIPOLAR, anxiety and depression) - Surgical History Past Surgical History?: No - Family History Family history: no significant - Social History Smoking Status: Never Smoker Substance Use Type: None - Medications Home Medications: Home Medications Medication Instructions Recorded Confirmed Last Taken Type Amoxicillin/Potassium Clav 1 each PO BID #14 tablet 01/14/21 Unknown Rx [Augmentin 875-125 Tablet] Chlorhexidine Mouthwash [Peridex] 15 ml MM BID #1 bottle 01/14/21 Unknown Rx traMADoL [Ultram] 50 mg PO Q6HR PRN #12 tablet 01/14/21 Unknown Rx clonazePAM [Klonopin] 1 mg PO Q12H PRN #12 tab 03/07/[address] [DepaKOTE DR] 500 mg PO BID #30 tablet 06/08/21 Unknown Rx clonazePAM [Klonopin] 1 mg PO BID PRN #10 07/05/21 Unknown Rx Ketorolac [Toradol] 10 mg PO Q6H PRN #14 07/10/[address] [Depakote Dr] 500 mg PO BID #60 tablet 07/20/21 Unknown Rx clonazePAM [Klonopin] 1 mg PO BID #16 tab 07/20/21 Unknown Rx Divalproex Sodium [Depakote] 500 mg PO BID 30 Days #60 tab 08/15/21 Unknown Rx clonazePAM [Klonopin] 1 mg PO BID 8 Days #16 tab 08/15/21 Unknown Rx ED Physical Exam - General Limitations: No Limitations General appearance: alert, in no apparent distress - Head Head exam: Present: atraumatic, normocephalic - Eye Eye exam: Present: normal appearance - ENT ENT exam: Present: mucous membranes moist - Neck Neck exam: Present: normal inspection - Respiratory Respiratory exam: Present: normal lung sounds bilaterally. Absent: respiratory distress - Cardiovascular Cardiovascular Exam: Present: regular rate, normal rhythm. Absent: systolic murmur, diastolic murmur, rubs, gallop - GI/Abdominal GI/Abdominal exam: Present: soft, normal bowel sounds - Extremities Exam Extremities exam: Present: normal inspection - Back Exam Back exam: Present: normal inspection - Neurological Exam Neurological exam: Present: alert, oriented X3 - Psychiatric Psychiatric exam: Present: normal affect, normal mood - Skin Skin exam: Present: warm, dry, intact, normal color. Absent: rash ED Course Vital Signs 10/20/21 10:02 Temperature 98.6 F Pulse Rate 85 Respiratory 14 Rate Blood Pressure 120/72 [Right] O2 Sat by Pulse 100 Oximetry ED Medical Decision Making - Medical Decision Making Vital Signs 10/20/21 10:02 Temperature 98.6 F Pulse Rate 85 Respiratory 14 Rate Blood Pressure 120/72 [Right] O2 Sat by Pulse 100 Oximetry Critical care attestation.: If time is entered above; I have spent that time in minutes in the direct care of this critically ill patient, excluding procedure time. ED Disposition Clinical Impression: Headache Disposition: 30 STILL A PATIENT Is pt being admited?: No Does the pt Need Aspirin: No Condition: Stable Time of Disposition: 12:54
[2021-10-20 10:07] VITALS: BP 120/72
[2021-10-20] MEDS ORDERED: ONDANSETRON 4 MG ODT TAB PO ONE ×2 (21:14→23:40)
[2021-10-20] MEDS ORDERED: HYDROcodone/ACETAMINOPHEN 5-325 MG TAB PO ONE ×2 (21:14→23:40)
[2021-10-20] MEDS ORDERED: IBUPROFEN 600 MG TAB PO ONE ×2 (21:14→23:40)
--- NOTE | 2021-10-20 22:34 | XRay Report ---
RIGHT KNEE 3 VIEW(S) INDICATION / CLINICAL INFORMATION: PAIN - FALL COMPARISON: None available. FINDINGS: No fracture, dislocation, or significant soft tissue abnormality is demonstrated. No radiopaque forei gn bodies are identified. IMPRESSION: 1.No evidence of acute osseous pathology. Signer Name: Preet Mathias II, MD Signed: 10/20/2021 10:30 PM Workstation Name: [id number]
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
== END 2021-10-21 00:41 | disposition home or self-care (01) ==
LOC: ED 09:25
DX: S83.91XA Sprain of unspecified site of right knee, initial encounter (principal); S80.11XA Contusion of right lower leg, initial encounter; F31.9 Bipolar disorder, unspecified; F41.9 Anxiety disorder, unspecified; X58.XXXA Exposure to other specified factors, initial encounter; Y93.89 Activity, other specified; Y92.89 Other specified places as the place of occurrence of the external cause; Y99.8 Other external cause status
CPT/HCPCS: 99283; J3490; Q0162